=== PATIENT | male | born 2000 | race Caucasian/White ===

== ENCOUNTER 2021-03-19 19:16 | Emergency (ER) | payer OTHER ==
[2021-03-19] MEDS ORDERED: ANTI-ITCH28 GM TP (19:58)
[2021-03-19] MEDS ORDERED: PREDNISONE50 MG PO (19:58)
== END 2021-03-19 20:18 | disposition home or self-care (01) ==
LOC: ER1 19:16
DX: L23.7 Allergic contact dermatitis due to plants, except food (principal)
CPT/HCPCS: 96372; 99282; J2930

== ENCOUNTER 2021-05-04 17:49 | Emergency (ER) | payer OTHER ==
[~2021-05-04 17:49] MED LIST: ANTI-ITCH28 GM TP; PREDNISONE50 MG PO
[2021-05-04 20:30] LABS: HEMOGLOBIN 16.8 gm/dl (14.0-17.5); RED BLOOD COUNT 5.92 M/UL (4.20-5.50); WHITE BLOOD COUNT 7.4 K/UL (4.5-11.0)
[2021-05-04 20:57] LABS: BUN/CREATININE RATIO 11 (0-10)
[2021-05-04] MEDS ORDERED: ZOFRAN ODT 4 MG4 MG PO (23:14)
== END 2021-05-05 01:15 | disposition home or self-care (01) ==
LOC: ER1 17:49
PROVIDERS: Physician Assistant
DX: U07.1 COVID-19 (principal); J12.82 Pneumonia due to coronavirus disease 2019; F17.290 Nicotine dependence, other tobacco product, uncomplicated
CPT/HCPCS: 71045; 80053; 85025; 99283; J1885; J7030; U0002

== ENCOUNTER 2021-05-09 18:53 | Emergency (ER) | payer OTHER ==
[~2021-05-09 18:53] MED LIST changes: +ZOFRAN ODT 4 MG4 MG PO
== END 2021-05-09 23:54 | disposition home or self-care (01) ==
LOC: ER1 18:53
DX: U07.1 COVID-19 (principal); F17.220 Nicotine dependence, chewing tobacco, uncomplicated
CPT/HCPCS: 99283